=== PATIENT | female | born 1990 | race Caucasian/White ===

== ENCOUNTER 2017-08-07 06:43 | Day surgery (SDC) | payer MEDICAID ==
[2017-08-07] MEDS ORDERED: Lactated Ringers 1,000 ML IV SCH (06:45)
[2017-08-07] MEDS ORDERED: Sodium Chloride 0.9% 10 ML Syringe FLUSH PRN (06:45)
[2017-08-07] MEDS ORDERED: Rocuronium 100 MG/10 ML MDV IV ONE (08:00)
[2017-08-07] MEDS ORDERED: cefOXitin 2 GM in Sodium Chloride 0.9% 100 ML IV ONE (08:00)
[2017-08-07] MEDS ORDERED: fentaNYL 100 MCG/2 ML SDV IV ONE (08:00)
[2017-08-07] MEDS ORDERED: Midazolam 1 MG/ML 2 ML SDV IV ONE (08:00)
[2017-08-07] MEDS ORDERED: Morphine 10 MG/ML Syringe IVPUSH ONE (08:00)
[2017-08-07] MEDS ORDERED: Ondansetron 4 MG/2 ML SDV IVPUSH ONE (08:00)
[2017-08-07] MEDS ORDERED: Glycopyrrolate 0.2 MG/ML 5 ML MDV IV ONE (08:00)
[2017-08-07] MEDS ORDERED: Lactated Ringers 1,000 ML IV ONE (08:00)
[2017-08-07] MEDS ORDERED: Propofol 200 MG/20 ML SDV IV ONE (08:00)
[2017-08-07] MEDS ORDERED: Succinylcholine 200 MG/10 ML MDV IV ONE (08:00)
[2017-08-07] MEDS ORDERED: diphenhydrAMINE 50 MG/ML SDV IV ONE (08:00)
[2017-08-07] MEDS ORDERED: Neostigmine Methylsulfate 10 MG/10 ML MDV IVPUSH ONE (08:00)
[2017-08-07] MEDS ORDERED: Ketorolac 30 MG/ML SDV IVPUSH ONE (08:00)
[2017-08-07] MEDS ORDERED: Dexamethasone 4 MG/ML 5 ML MDV IVPUSH ONE (08:00)
[2017-08-07] MEDS ORDERED: Lidocaine 1% with EPINEPHrine 1:100,000 20 ML MDV ONE (08:15)
[2017-08-07] MEDS ORDERED: Bupivacaine 0.5% 30 ML SDV ONE (08:15)
[2017-08-07] MEDS ORDERED: Acetaminophen/HYDROcodone 325-5 MG Tab PO PRN (09:03)
--- NOTE | 2017-08-07 09:03 | PCM.OPNOTE ---
- General Post-Op/Procedure Note Date of Surgery/Procedure: 08/07/17 Operative Procedure(s): lap cholecystectomy Findings: gallbladder and stones critical view obtained Pre Op Diagnosis: sx gallstones Post-Op Diagnosis: Same Anesthesia Technique: General ET Tube, Local (11 ml 1 % lido with epi/0.5% buvipicaine) Primary Surgeon: Ethan Nguyen Anesthesia Provider: Latanya Leone Pathology: gallbladder and contents. Complications: None Condition: Good Free Text/Narrative:: see dictation.
--- NOTE | 2017-08-07 10:04 | OR ---
DATE OF OPERATION: 08/07/2017 SURGEON: Ethan Nguyen MD PROCEDURE PERFORMED: Laparoscopic cholecystectomy. PREOPERATIVE DIAGNOSIS: Symptomatic cholelithiasis. POSTOPERATIVE DIAGNOSIS: Symptomatic cholelithiasis. INDICATIONS FOR PROCEDURE: This is a 26-year-old white female, who has a history of symptomatic cholelithiasis. She was offered and accepted repair. DESCRIPTION OF OPERATION: After an excellent general anesthetic was administered, the patient was prepped and draped in the usual sterile manner. Grand total of 11 mL of 1:1 mixture of 1% lidocaine with epinephrine 0.5% bupivacaine was used to infiltrate the area. We started by our trocar sites. We started at the level of the umbilicus and after infiltrating the area just below the belly button, a small vertical midline incision was carried out. Blunt dissection was carried out exposing the midline fascia. Two stay sutures of 0 Vicryl placed on either side of the midline fascia, which was then elevated. The midline was then incised after digital palpation to ensure that there were no adhesions and a 10.5-mm Saeid trocar was inserted into the patient's abdomen, which was then insufflated to 15 mmHg using carbon dioxide. Under direct visualization, three 5 mm ports were placed, 2 below the right costal margin at the midclavicular and anterior axillary line and 1 in the midline epigastrium. This was done by infiltrating with local making stab incisions and inserting our trocars. Gallbladder was grasped after putting the patient in reverse Trendelenburg position with an airplane to the left. The infundibulum was grasped. Blunt dissection was carried out exposing the cystic duct and cystic artery. Two clips were placed proximally on the cystic duct and one distally and 2 clips were placed proximally on the cystic artery and 1 distally and this was then transected. L-hook cautery dissection was used to dissect the gallbladder free from the gallbladder fossa. The specimen was then passed into a bag and delivered out through the umbilical port. The area was irrigated. Two small bleeding points controlled with electrocautery. Trocars were then removed under direct visualization after assuring excellent hemostasis. The pneumoperitoneum was released. The midline periumbilical defect was closed with a [id number] 0 Vicryl and the 2-0 Vicryl sutures. The stay sutures were tied to each other. Subcu 4-0 Vicryl was used to close the skin. Steri-Strips were applied. Needle, sponge, and instrument counts were reported as correct. The patient was taken to recovery in good condition. /[id number] /MODL
[2017-08-07 12:49] VITALS: BP 125/77
== END 2017-08-07 12:00 | disposition home or self-care (01) ==
LOC: FB.SDS 06:43
PROVIDERS: ATTEND Surgery
DX: K80.10 Calculus of gallbladder with chronic cholecystitis without obstruction (principal); Z79.899 Other long term (current) drug therapy
CPT/HCPCS: 47562; 81025; 88304; A9270; J0330; J0694; J1100; J1200; J1885; J2250; J2270; J2405; J2704; J2710; J3010; J7030; J7120

== ENCOUNTER 2018-11-25 18:31 | Emergency (ER) | payer BC, MEDICAID ==
[2018-11-25] MEDS ORDERED: Sodium Chloride 0.9% 1,000 ML IV ONE (19:43)
[2018-11-25] MEDS ORDERED: Ondansetron 4 MG/2 ML SDV IVPUSH ONE (19:44)
[2018-11-25] MEDS ORDERED: Dextrose 5%-Lactated Ringers 1,000 ML IV SCH (19:45)
--- NOTE | 2018-11-25 20:03 | EDM.PDOC ---
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 The abdominal discomfort is more localized in the right upper quadrant. She does not have associated fever, trauma history , sore throat or sinus upper respiratory lower respiratory symptoms, chest pain , back pain, kidney stone history, or upper or lower external pain.. This pleasant 28-year-old woman Abdominal Pain Score (Numeric/FACES): 7 - Related Data Allergies Allergy/AdvReac Type Severity Reaction Status Date / Time No Known Allergies Allergy Verified 11/25/18 20:34 Home Meds: Home Meds NK [No Known Home Meds] 11/25/18 [History] Past Medical History HEENT History: Reports: None Gastrointestinal History: Reports: GERD Musculoskeletal History: Reports: Other (See Below) Other Musculoskeletal History: CHRONIC RIGHT KNEE ACHING Endocrine/Metabolic History: Reports: Obesity/BMI 30+ Social & Family History - Caffeine Use Caffeine Use: Reports: None ED ROS GENERAL - Review of Systems Review Of Systems: ROS reveals no pertinent complaints other than HPI. ED EXAM, GENERAL - Physical Exam Exam: See Below Free Text/Narrative:: This pleasant mildly overweight woman who is laying on her back on the gurney and has moderate 7/10 discomfort. She is attended by her significant other Exam Limited By: No Limitations General Appearance: Alert, Moderate Distress Eye Exam: Bilateral Eye: Normal Inspection Nose: Normal Inspection Throat/Mouth: Normal Inspection, Normal Lips, Normal Teeth, Normal Gums, Normal Oropharynx, Normal Voice, No Airway Compromise Head: Atraumatic, Normocephalic Neck: Normal Inspection, Supple, Non-Tender, Full Range of Motion, Other (No thyromegaly no cervical adenopathy) Respiratory/Chest: No Respiratory Distress, Lungs Clear, Normal Breath Sounds, No Accessory Muscle Use, Chest Non-Tender Cardiovascular: Normal Peripheral Pulses, Regular Rate, Rhythm, No Edema, No Gallop, No JVD, No Murmur, No Rub, JVD, Bradycardia Peripheral Pulses: 1+: Radial (L), Radial (R) GI/Abdominal: Normal Bowel Sounds, Soft, No Organomegaly, No Distention, No Abnormal Bruit, No Mass, Tender, Other (Mild abdominal guarding no rebound no Rebound psoas sign is negative) (Female) Exam: Deferred Rectal (Female) Exam: Deferred Back Exam: Normal Inspection, Other (Mild CVA discomfort caution) Extremities: Normal Inspection, Normal Range of Motion, Non-Tender, No Pedal Edema, Normal Capillary Refill Neurological: Alert, Oriented, CN II-XII Intact, Normal Cognition, Normal Gait, Normal Reflexes, No Motor/Sensory Deficits Psychiatric: Normal Affect, Normal Mood Skin Exam: Warm, Dry, Intact, Normal Color, No Rash Course - Vital Signs Last Recorded V/S: Last Vital Signs Temp 36.8 C 11/25/18 21:45 Pulse 87 11/25/18 21:45 Resp 18 11/25/18 21:45 BP 112/70 11/25/18 21:45 Pulse Ox 100 11/25/18 21:45 - Orders/Labs/Meds Labs: Laboratory Tests 11/25/18 11/25/18 11/25/18 Range/Units 19:55 19:55 21:55 WBC 11.3 (4.5-12.0) X10-3/uL RBC 4.78 (3.23-5.20) x10(6)uL Hgb 14.7 (11.5-15.5) g/dL Hct 43.0 (30.0-51.3) % MCV 89.9 (80-96) fL MCH 30.8 (27.7-33.6) pg MCHC 34.3 (32.2-35.4) g/dL RDW 12.6 (11.5-15.5) % Plt Count 243 (125-369) X10(3)uL MPV 9.9 (7.4-10.4) fL Neut % (Auto) 76.5 (46-82) % Lymph % (Auto) 12.3 L (13-37) % Mcnairy % (Auto) 8.3 (4-12) % Eos % (Auto) 1 (1.0-5.0) % Baso % (Auto) 2 (0-2) % Neut # (Auto) 8.7 H (1.6-8.3) # Lymph # (Auto) 1.4 (0.6-5.0) # Mcnairy # (Auto) 0.9 (0.0-1.3) # Eos # (Auto) 0.1 (0.0-0.8) # Baso # (Auto) 0.2 (0.0-0.2) # Sodium 138 (135-145) mmol/L Potassium 3.3 L (3.5-5.3) mmol/L Chloride 101 (100-110) mmol/L Carbon Dioxide 25 (21-32) mmol/L BUN 12 (7-18) mg/dL Creatinine 0.7 (0.55-1.02) mg/dL Est Cr Clr Drug Dosing TNP Estimated GFR (MDRD) > 60 (>60) BUN/Creatinine Ratio 17.1 (9-20) Glucose 102 (80-116) mg/dL Calcium 9.1 (8.6-10.2) mg/dL Total Bilirubin 0.7 (0.1-1.3) mg/dL AST 31 H (5-25) IU/L ALT 75 H (12-36) U/L Alkaline Phosphatase 76 (56-112) IU/L Total Protein 7.5 (6.0-8.0) g/dL Albumin 3.6 (3.5-5.2) g/dL Globulin 3.9 g/dL Albumin/Globulin Ratio 0.9 Urine HCG, Qual Negative (NEGATIVE) Meds: Medications Discontinued Medications Generic Name Dose Route Start Last Admin Trade Name Freq PRN Reason Stop Dose Admin Dextrose/Lactated Ringer's 1,000 mls @ 999 mls/hr 11/25/18 19:45 11/25/18 20: 15 Dextrose 5%-Lactated Ringers IV 999 mls/hr ASDIRECTED BARBIE Administration Sodium Chloride 1,000 mls @ 999 mls/hr 11/25/18 19:43 11/25/18 21:16 Normal Saline IV 11/25/18 20:43 999 mls/hr .BOLUS ONE Administration Ondansetron HCl 4 mg 11/25/18 19:44 11/25/18 20:15 Zofran IVPUSH 11/25/18 19:45 4 mg ONETIME ONE Administration Departure - Departure Time of Disposition: 21:00 (Patient presented with diarrhea and vomiting causing dehydration. She may have rotavirus,or noro virus staphylococcal/ Escherichia coli entero toxin mediated gastroenteritis or another unknown bacterial mediated agent. IV Therapy utilized: flushed with 2000 mL IV fluid. Plus laboratory work. And nausea medicine Zofran IV. And felt much better.) Disposition: Home, Self-Care 01 Condition: Good Clinical Impression: Gastroenteritis, Hypokalemia, gastrointestinal losses - Discharge Information *PRESCRIPTION DRUG MONITORING PROGRAM REVIEWED*: Not Applicable *COPY OF PRESCRIPTION DRUG MONITORING REPORT IN PATIENT MEREDITH: Not Applicable Referrals: Ana Downey NP [Primary Care Provider] - Forms: ED Department Discharge Additional Instructions: Use flavored Pedialyte and he needed to drink at least 2 quarts a day. Drinking increase her diet as tolerated. The cause for your diarrhea and vomiting is indeterminate. For a possibly a viral mediated process: Rotavirus, or another type of virus, or kay-toxins from staphylococcal E coli bacteria. Gradually increase her diet as tolerated. Follow up with her doctor in 24 hours if you're markedly worse otherwise follow-up as needed in a week.
[2018-11-26 04:23] VITALS: BP 112/70
== END 2018-11-25 21:50 | disposition home or self-care (01) ==
LOC: FB.ED 18:31
DX: K52.9 Noninfective gastroenteritis and colitis, unspecified (principal); E87.6 Hypokalemia; E66.9 Obesity, unspecified
CPT/HCPCS: 36415; 80053; 81025; 85025; 96361; 96374; 99284; J2405; J7030; J7042

== ENCOUNTER 2023-08-18 14:28 | Emergency (ER) | payer MEDICAID ==
[2023-08-18] MEDS ORDERED: Acetaminophen/HYDROcodone 325-5 MG Tab PO ONE (14:29)
[2023-08-18] MEDS ORDERED: Sodium Chloride 0.9% 10 ML Syringe FLUSH PRN (14:31)
[2023-08-18] MEDS ORDERED: Ondansetron 4 MG/2 ML SDV IVPUSH ONE (14:35)
[2023-08-18] MEDS ORDERED: Sodium Chloride 0.9% 1,000 ML IV SCH (14:45)
[2023-08-18 14:46] LABS: BASOPHILS PERCENT AUTO 0.2 % (0.2-1.5); EOSINOPHILS PERCENT AUTO 0.2 % (0.6-8.1); HEMOGLOBIN 13.9 g/dL (11.4-15.5); LYMPHOCYTES ABSOLUTE AUTO 1.4 x10-3/uL (1.0-4.4); LYMPHOCYTES PERCENT AUTO 12.7 % (18.4-52.1); MEAN CORPUSCULAR HEMOGLOBIN 31.7 pg (23.9-33.9); MEAN CORPUSCULAR HGB CONC 34.7 g/dL (31.9-34.8); MEAN CORPUSCULAR VOLUME 91.2 fL (76.7-100.5); MEAN PLATELET VOLUME 8.2 fL (7.1-12.4); MONOCYTES ABSOLUTE AUTO 1.2 x10-3/uL (0.3-1.0); MONOCYTES PERCENT AUTO 10.9 % (4.4-15.7); NEUTROPHILS ABSOLUTE AUTO 8.2 x10-3/uL (1.5-6.3); PLATELET COUNT,PLT 272 x10(3)uL (151-488); RED BLOOD CELL COUNT 4.39 x10(6)uL (3.60-5.20); RED CELL DISTRIBUTION WIDTH 13.1 % (12.3-16.5); WHITE BLOOD CELL COUNT,WBC 10.8 x10-3/uL (3.0-10.3)
[2023-08-18 14:54] LABS: BLOOD UREA NITROGEN,BUN 5 mg/dL (7-18); BUN/CREATININE RATIO 7.1 (9-20); CALCIUM 9.1 mg/dL (8.6-10.2); CARBON DIOXIDE,CO2 27 mmol/L (21-32); CHLORIDE,CL 102 mmol/L (100-110); CREATININE 0.7 mg/dL (0.55-1.02); EST CRCL DRUG DOSING (CG) 99.63 mL/min; ESTIMATED GFR 118 mL/min (>60); GLUCOSE RANDOM 110 mg/dL (80-116); POTASSIUM,K 3.2 mmol/L (3.5-5.3); SODIUM,NA 139 mmol/L (135-145)
[2023-08-18 15:00] LABS: A/G RATIO 0.9; ALANINE AMINOTRANSFERASE,ALT 33 U/L (12-36); ALBUMIN 3.5 g/dL (3.5-5.2); ALKALINE PHOSPHATASE 67 IU/L (56-112); AMYLASE 26 U/L (25-115); ASPARTATE AMNIOTRANSFERASE,AST 16 IU/L (5-25); BILIRUBIN TOTAL 0.5 mg/dL (0.1-1.3); PROTEIN TOTAL,TP 7.6 g/dL (6.0-8.0)
[2023-08-18] MEDS ORDERED: Morphine 4 MG/ML VIAL IVPUSH ONE (15:02)
[2023-08-18] MEDS ORDERED: Atropine/Diphenoxylate 0.025-2.5 MG Tab PO ONE (15:03)
[2023-08-18] MEDS ORDERED: Iopamidol 755 Mg/ML 100 ML Bottle IV SCH (16:30)
[2023-08-18] MEDS ORDERED: Potassium Chloride 20 MEQ Tab.ER PO ONE (16:55)
[2023-08-18 18:02] VITALS: BP 122/77; PULSE 68
== END 2023-08-18 17:45 | disposition home or self-care (01) ==
LOC: FB.ED 14:28
DX: K52.9 Noninfective gastroenteritis and colitis, unspecified (principal); E86.0 Dehydration; E87.6 Hypokalemia; E66.9 Obesity, unspecified; Z68.32 Body mass index [BMI] 32.0-32.9, adult
CPT/HCPCS: 36415; 74177; 80053; 82150; 83690; 84702; 85025; 96361; 96374; 96375; 99284; A9270; J2270; J2405; J7030; Q9967